=== PATIENT | female | born 1955 | race Caucasian/White ===

== ENCOUNTER → 2018-09-11 14:11 | Outpatient (CLI) | payer OTHER, MEDICAID | END | disposition home or self-care (01) | LOC: D.CT 14:11 | DX: Z12.2 Encounter for screening for malignant neoplasm of respiratory organs (principal) ==

== ENCOUNTER 2019-02-24 14:52 | Emergency (ER) | payer OTHER, MEDICAID ==
[~2019-02-24] VITALS: Ht 152.4 cm; Wt 44.5 kg
[2019-02-24 15:02] VITALS: Ht 152.4 cm; Wt 44.5 kg
[2019-02-24] MEDS ORDERED: HYDROCODON-ACE1 EA10 PO (15:03)
[2019-02-24] MEDS ORDERED: VOLTAREN75 MG PO (15:46)
[2019-02-24] MEDS ORDERED: PREDNISONE20 MG PO (15:46)
[2019-02-24 16:31] VITALS: BP 111/74
[2019-02-25] MEDS ORDERED: CLIMARA 0.0.1 MG/PAT TRANSDERM (08:44)
[2019-02-25] MEDS ORDERED: ZANAFLEX2 M1 PO (08:46)
[2019-02-25] MEDS ORDERED: DURAGESIC1 PATCH .1 TRANSDERM (13:49)
[2019-02-26 12:23] VITALS: Ht 152.4 cm; Wt 44.5 kg
== END 2019-02-24 16:31 | disposition home or self-care (01) ==
LOC: D.ER 14:52
DX: M54.31 Sciatica, right side (principal)

== ENCOUNTER 2019-02-25 03:29 | Emergency (ER) | payer OTHER, MEDICAID ==
[~2019-02-25] VITALS: Ht 152.4 cm; Wt 44.5 kg
[~2019-02-25 03:29] MED LIST: HYDROCODON-ACE1 EA10 PO; PREDNISONE20 MG PO; VOLTAREN75 MG PO
[2019-02-25 03:34] VITALS: Ht 152.4 cm; Wt 44.5 kg
[2019-02-25 04:13] VITALS: BP 100/54
[2019-02-25] MEDS ORDERED: CLIMARA 0.0.1 MG/PAT TRANSDERM (08:44)
[2019-02-25] MEDS ORDERED: ZANAFLEX2 M1 PO (08:46)
[2019-02-25] MEDS ORDERED: DURAGESIC1 PATCH .1 TRANSDERM (13:49)
[2019-02-26 12:23] VITALS: Ht 152.4 cm; Wt 44.5 kg
== END 2019-02-25 04:14 | disposition home or self-care (01) ==
LOC: D.ER 03:29
DX: M54.16 Radiculopathy, lumbar region (principal)

== ENCOUNTER 2019-02-25 04:46 | Inpatient (IN) | payer OTHER, MEDICAID ==
[2019-02-25] VITALS (19 sets, daily range): BP systolic 107–159; BP diastolic 60–103; BMI 17.0
[~2019-02-25] VITALS: Ht 152.4 cm; Wt 41.4 kg
[2019-02-25 05:22] LABS: APPEARANCE CLEAR (CLEAR); BILIRUBIN NEGATIVE (NEGATIVE); COLOR YELLOW (YELLOW); GLUCOSE NEGATIVE (NEGATIVE); KETONE SMALL mg/dL (NEGATIVE); NITRITE NEGATIVE (NEGATIVE); PROTEIN NEGATIVE (NEGATIVE); UROBILINOGEN NORMAL (NORMAL)
[2019-02-25 05:26] LABS: BASOPHILS 0.1 % (0-2); EOSINOPHILS 0 % (0-7); HEMATOCRIT 39.2 % (36.0-48.0); HEMOGLOBIN 13.8 g/dL (12-16); IMMATURE GRANULOCYTES 0.2 % (0-5); LYMPHOCYTES 15.5 % (15-50); MCH 31.2 pg (26.0-34.0); MCHC 35.2 g/dL (31.0-37.0); MCV 88.5 fL (80.0-100.0); MONOCYTES 2.8 % (2-11); NEUTROPHILS 81.4 % (40-80); PLATELET COUNT 371 10x3/uL (130-400); RBC 4.43 10x6/uL (4.00-5.40); WBC 11.2 10x3/uL (4.8-10.8)
[2019-02-25 05:31] LABS: UDS - AMPHET NEGATIVE QUAL (NEGATIVE); UDS - BARB NEGATIVE QUAL (NEGATIVE); UDS - BENZO NEGATIVE QUAL (NEGATIVE); UDS - COCAINE NEGATIVE QUAL (NEGATIVE); UDS - OPIATE POSITIVE QUAL (NEGATIVE); UDS - PCP NEGATIVE QUAL (NEGATIVE); UDS - THC POSITIVE QUAL (NEGATIVE)
[2019-02-25 05:42] LABS: ALKALINE PHOSPHATASE 55 U/L (46-116); ALT (SGPT) 16 U/L (10-68); BILIRUBIN - TOTAL 0.49 mg/dL (0.2-1.3); CALC OSMOLALITY 276 mosm/kg (275-300); CARBON DIOXIDE 19.3 mmol/L (21.0-32.0); CHLORIDE - SERUM 99 mmol/L (98-107); CREATININE - SERUM 1.3 mg/dL (0.6-1.3); GLUCOSE 187 mg/dL (74-106); POTASSIUM - SERUM 3.9 mmol/L (3.5-5.1); PROTEIN - SERUM 8.1 g/dL (6.4-8.2); SODIUM 135 mmol/L (136-145); UREA NITROGEN 18 mg/dL (7-18); eGFR NON AFRICAN AMERICAN 44 mL/min (90-120)
[2019-02-25 06:05] LABS: CREATINE KINASE 381 UL (21-215); LIPASE 74 U/L (73-393); MAGNESIUM - SERUM 1.9 mg/dL (1.8-2.4); PRO BNP 112 pg/mL (0-125); THYROID STIMULATING HORMONE 0.52 uIU/mL (0.36-3.74); TROPONIN-I < 0.017 ng/mL (0.000-0.060)
[2019-02-25 06:07] LABS: CKMB 5.9 U/L (0.0-3.6)
--- NOTE | 2019-02-25 07:19 | NUR ---
RECIEVED CARE OF PT. PT ALET, ANSWERING QUESTIONS APPROP. CONSTANTLY WALKING, DANCING IN PLACE. CONTINUES 2ND LITER NS INFUSING. VSS
--- NOTE | 2019-02-25 07:20 | NUR ---
ENTERED PT ROOM AND PT HAD MED BOTTLE IN HAND, ALSO NOTICED BOTTLE IN PURSE. RX'S FOR DILAUDID 8MG, TIZANIDINE 2MG. MEDS SECURED, INVENTORIED AND PHARMACY NOTIFIED
--- NOTE | 2019-02-25 07:29 | NUR ---
HR 128 AND REGULAR
--- NOTE | 2019-02-25 08:15 | NUR ---
PT ARRIVED TO UNIT AT THIS TIME VIA WHEELCHAIR. PT NOTED BOUNCING LEGS WITH RESTLESSNESS, UNABLE TO RELAX LEGS FOR LONGER THAN A FEW SECONDS. PT NOTED STRETCHING IN BED BY PLACING LEGS AT HEAD LEVEL TO HELP EASE RESTLESSNESS. PT IS ALERT AND ORIENTED. SITTER AT [facility]. WILL CONTINUE TO OBSERVE.
[2019-02-25] MEDS ORDERED: CLIMARA 0.0.1 MG/PAT TRANSDERM (08:44)
[2019-02-25] MEDS ORDERED: ZANAFLEX2 M1 PO (08:46)
--- NOTE | 2019-02-25 10:25 | NUR ---
PT LYING IN BED WITH EYES CLOSED AT THIS TIME. PT IS CALM, STATES THAT HER DISCOMFORT/TWITCHING TO LEGS HAS BEGAN TO DIMINISHED. PT APPEARS MUCH LESS RESTLESS AND HEART RATE NOW NOTED IN SINUS 60S. DR WOODWARD ROUNDING ON PT, NOTIFIED. NO ACUTE DISTRESS NOTED. VSS. WILL CONTINUE PLAN OF CARE.
--- NOTE | 2019-02-25 11:07 | NUR ---
DR WOODWARD HAS SEEN PT, ORDERS RECIEVED FOR CT HEAD WITHOUT CONTRAST. ORDER PLACED. NO ACUTE DISTRESS NOTED. VSS. WILL CONTINUE PLAN OF CARE.
--- NOTE | 2019-02-25 11:18 | NUR ---
CONTINENT VOID AT THIS TIME VIA BEDSIDE TOILET, 300ML YELLOW URINE. NO ACUTE DISTRESS NOTED. VSS. WILL CONTINUE PLAN OF CARE.
[2019-02-25 12:13] LABS: CKMB 17.5 U/L (0.0-3.6); TROPONIN-I 0.027 ng/mL (0.000-0.060)
[2019-02-25 12:14] LABS: CREATINE KINASE 1002 UL (21-215)
--- NOTE | 2019-02-25 12:14 | NUR ---
PT NOTED TO APPEAR RESTLESS AT THIS TIME, UNABLE TO STAY STILL FOR LONGER THAN A FEW SECONDS. NOTED TO HAVE JERKING MOTIONS TO BOTH LEGS. PT UP IN ROOM WALKING AROUND TRYING TO HELP CALM THE MOVEMENTS DOWN. SITTER AT BEDSIDE. WILL CONTINUE TO OBSERVE.
--- NOTE | 2019-02-25 12:59 | NUR ---
PT INCREASE IN RESTLESSNESS/AGGITATION AND UNABLE TO REMAIN STILL AT ALL. PT CRAWLING IN BED AND WALKING IN ROOM. HEART RATE INCREAED TO 102 SINUS TACH. PRN ATIVAN ADMIN. DR WOODWARD UPDATED AND NOTIFIED ORDERED PRN HALDOL AND LAB TEST OF TSH. ORDERS PLACED. SITTED AT BEDSIDE. WILL CONTINUE PLAN OF CARE.
--- NOTE | 2019-02-25 13:22 | NUR ---
PT UP IN ROOM AT THIS TIME. NO ACUTE DISTRESS NOTED. PT STILL NOTED RESTLESS, HEART RATE TRENDING AROUND 97-102 SINUS. PT TALKING WITH SITTER. WILL CONTINUE TO OBSERVE.
[2019-02-25] MEDS ORDERED: DURAGESIC1 PATCH .1 TRANSDERM (13:49)
--- NOTE | 2019-02-25 14:20 | NUR ---
PT STILL STANDING UP IN ROOM BUT APPEARS LESS AGGITATED WITH CURRENTLY FEWER TWITCHING MOVEMENTS. HEART RATE 72 SINUS. VSS. WILL CONTINUE TO OBSERVE.
--- NOTE | 2019-02-25 16:32 | NUR ---
LYING IN BED, BACKWARDS IN BED WITH HEAD AT FOOT OF BED. PT IS AWAKE, CALM. DENIES ANY NEEDS. STATES STILL HAVING SOME TWITCHING OF LEGS. VSS. WILL CONTINUE PLAN OF CARE.
[2019-02-25 17:32] LABS: CREATINE KINASE 1164 UL (21-215); TROPONIN-I < 0.017 ng/mL (0.000-0.060)
--- NOTE | 2019-02-25 17:59 | NUR ---
PT PACING FLOOR. WANTS IV TAKEN OFF, SAYS SHE "NEEDS A BREAK" FROM IT. LET HER KNOW THAT SHE HAD ORDERS FOR IT TO BE INFUSING AND CANNOT TURN IT OFF. SITTER IS AT BEDSIDE.
--- NOTE | 2019-02-25 18:00 | NUR ---
PER BROOKE WHITING TO GUY SITTER. PT WILL BE MOVED TO ROOM CLOSER TO NURSES STATION FOR CLOSE OBSERVATIONS. NO CURRENT AGGITATION. VSS. WILL CONTINUE PLAN OF CARE.
--- NOTE | 2019-02-25 21:52 | NUR ---
1900 PT ASSESSMENT COMPLETED AT THIS TIME, PT STILL ANXIOUS AND C/O LEGS SPASMING, PT STATES THAT IT IS SOME BETTER AFTER THE MEDICINE THEY GAVE HER. VSS WILL CONT TO MONITOR
--- NOTE | 2019-02-25 21:54 | NUR ---
2100 PT UP TO THE BEDSIDE C/O LEGS GETTING WORSE. PT WAS GIVEN PRN MEDICINE TO CALM HER RESTLESS/AGGITATION, AND RELAX HER SPASMS
[2019-02-25 23:36] LABS: CKMB 17.3 U/L (0.0-3.6)
[2019-02-25 23:40] LABS: CREATINE KINASE 1374 UL (21-215); TROPONIN-I < 0.017 ng/mL (0.000-0.060)
[2019-02-26] VITALS (12 sets, daily range): BP systolic 109–153; BP diastolic 57–90; Ht 152.4 cm; Wt 41.4 kg
--- NOTE | 2019-02-26 00:10 | NUR ---
0915 PT CALLED NURSE TO ROOM, PT WAS NOTED STANDING AT THIS IV PUMP TRYING TO TAKE HER IV OUT. SWELLING AT THE SITE WAS NOTED, IV D/C WITH CATH INTACT. DRESSING PLACED TO SITE BLEEDING CONTROLLED AT THIS TIME.
--- NOTE | 2019-02-26 00:40 | NUR ---
0025 PT WAS FOUND UP AT THE BEDSIDE WITH HER MANUGRAPHER AND CIGARETES IN HAND, PT WAS INFORMED THAT SHE COULD NOT SMOKE AND HER BELONGINGS WERE REMOVED FROM HER ROOM. 0030 PT WAS AGAIN INSTRUCTED TO STAY IN THE BED DUE HER INCREASING CMBK,CPK 0035 PT OUT OF BED STATES THAT SHE IS TRYING TO UNTANGLE THE CORDS. PT WAS PLACED BACK IN BED. 0040. PT OUT OF BED AGAIN, PT STATES THAT SHE WAS TRYING TO FIX THE STUFF THE KIDS MESSED UP. PT WAS INFORMED THAT SHE WAS IN THE HOSPITAL AND THERE WAS NO KIDS HERE, PT HELPED BACK TO BED.
--- NOTE | 2019-02-26 01:06 | NUR ---
0050 PT WAS GETTING OUT OF BED, WHEN ASKED WHAT SHE WAS DOING THE PT RESPONDED IM READY TO BE DISCHARGED. PT WAS UNABLE TO REPEAT WHAT HOSPITAL SHE WAS AT, THE TIME OF DAY, OR THE REASON SHE WAS IN THE HOSPITAL. PT WAS INFORMED THAT SHE WAS NOT ORIENTED ENOUGH TO BE DISCHARGED AT THIS TIME. PT WAS ASSISTED BACK TO BED.
--- NOTE | 2019-02-26 02:12 | NUR ---
PT CONFUSED AND ON HER KNEES IN THE BED TRYING TO TURN OFF THE CALL LIGHT. PT IS MORE CONFUSED. VSS AT THIS TIME.
--- NOTE | 2019-02-26 03:30 | NUR ---
INTO PATIENTS ROOM MULTIPLE TIMES THIS AM WITH PATIENT GETTING UP OUT OF BED. PAITENT CONFUSED. DISORIENTED TO PLACE/TIME AND SITUATION. HAVING VISUAL AND AUDITORY HALLUCINATIONS OF FAMILY MEMBERS. REORIENTED WITH LITTLE TO NO RETENTION. ASSISTED TO BED WITH BED ALARM ON AND FUNCTIONING PROPERLY
[2019-02-26 03:49] LABS: BASOPHILS 0.2 % (0-2); EOSINOPHILS 0.1 % (0-7); HEMATOCRIT 35.8 % (36.0-48.0); HEMOGLOBIN 12.5 g/dL (12-16); IMMATURE GRANULOCYTES 0.2 % (0-5); LYMPHOCYTES 13.7 % (15-50); MCH 30.8 pg (26.0-34.0); MCHC 34.9 g/dL (31.0-37.0); MCV 88.2 fL (80.0-100.0); MEAN PLATELET VOLUME 10.1 fL (7.4-10.4); MONOCYTES 7.1 % (2-11); NEUTROPHILS 78.7 % (40-80); PLATELET COUNT 335 10x3/uL (130-400); RBC 4.06 10x6/uL (4.00-5.40); RDW 14.1 % (11.5-14.5)
[2019-02-26 03:51] LABS: WBC 15.2 10x3/uL (4.8-10.8)
--- NOTE | 2019-02-26 03:53 | NUR ---
CALLED NURSE CLINICAL ALICIA GUDINO DUE TO CHANGES IN MENTAL STATUS AND INCREASED CONFUSION WITH HALLUCINATIONS, SHE ORDERED TO NOT GIVEN ANY ADDITIONAL MEDICINE AT THIS TIME TO SEE IF THE MENTAL STAUS IMPROVES
[2019-02-26 04:02] LABS: ALBUMIN 3.7 g/dL (3.4-5.0); ALKALINE PHOSPHATASE 45 U/L (46-116); BILIRUBIN - TOTAL 0.48 mg/dL (0.2-1.3); C-REACTIVE PROTEIN 0.7 mg/dL (0.0-0.9); CHLORIDE - SERUM 109 mmol/L (98-107); MAGNESIUM - SERUM 1.6 mg/dL (1.8-2.4); SODIUM 145 mmol/L (136-145)
[2019-02-26 04:03] LABS: ALT (SGPT) 28 U/L (10-68); CALC OSMOLALITY 290 mosm/kg (275-300); CARBON DIOXIDE 25.9 mmol/L (21.0-32.0); CREATININE - SERUM 0.7 mg/dL (0.6-1.3); GLUCOSE 130 mg/dL (74-106); POTASSIUM - SERUM 3.1 mmol/L (3.5-5.1); UREA NITROGEN 13 mg/dL (7-18); eGFR NON AFRICAN AMERICAN 90 mL/min (90-120)
[2019-02-26 04:24] LABS: CKMB 21.6 U/L (0.0-3.6)
[2019-02-26 04:25] LABS: CREATINE KINASE 1741 UL (21-215); TROPONIN-I < 0.017 ng/mL (0.000-0.060)
--- NOTE | 2019-02-26 05:00 | NUR ---
PATIENT CONTINUES CONFUSED WITH AUDITORY AND VISUAL HALLUCINATIONS PRESENT. SPEAKING TO MULTIPLE FAMILY MEMBERS NOT PRESENT. ORIENTED TO PERSON ONLY. SPEECH CLEAR. REORIENTATION WITH LITTLE RETENTION. CONINUES GETTING UP OUT OF BED FREQUENTLY. BED ALARM ON AND FUNCTIONING PROPERLY.
[2019-02-26 05:34] LABS: ERYTHROCYTE SEDIMENTATION RATE 38 mm/hr (0-30)
--- NOTE | 2019-02-26 07:00 | NUR ---
PT RESTING IN BED C CALL CEDILLO IN REACH. PATIENT IS RESTLESS AND DISORIENTED TO PLACE AND TIME. CONTINUALLY TRYING TO GET OUT OF BED. BED ALARM ON. NS INFUSING AT 100ML/HR PER RIGHT FOREARM PIV. NO NEUROLOGICAL DEFICITS. WILL CONTINUE TO MONITOR.
--- NOTE | 2019-02-26 09:00 | NUR ---
PT REMOVD LEFT FOREARM IV. STARTED NEW ONE IN LEFT WRIST.
--- NOTE | 2019-02-26 09:38 | NUR ---
PT HAD INCONTINENT LOOSE BM IN BSC THEN THREW HER PANTS IN IT. PATIENT STATED HER PANTS COULD BE THROWN AWAY
--- NOTE | 2019-02-26 10:09 | NUR ---
patient refusing iv fluids
--- NOTE | 2019-02-26 10:30 | NUR ---
OBTAINED ORDER FROM DR. THORNTON FOR GEODON TO SEDATE PATIENT
--- NOTE | 2019-02-26 14:37 | NUR ---
BED BATH GIVEN. REPORT GIVEN TO CORINNA BROWN.
--- NOTE | 2019-02-26 15:00 | NUR ---
REASSESSMETN COMPLETE PER FLWO SHEET. VSS. NO NEW CHANGES WILL CONTINUE TO MONITOR
--- NOTE | 2019-02-26 17:00 | NUR ---
PGT RESTING COMFORTABLY VSS NO NEW CHANGES WILL CONTINUE TO MONITOR
--- NOTE | 2019-02-26 19:00 | NUR ---
1900 PT ASSESSMENT COMPLETED AT THIS TIME. PT AWAKES TO NAME. PT PULLING AT BALANKETS AND RESTRAINTS RESP EVEN NON LABORED. WILL CONT TO MONITOR FOR CHANGES. 2100 PT VSS, NO CHANGES NOTED WILL CONT TO MONITOR 2300 PT REASSESSMENT COMPLETED AT THIS TIME. NO CHANGES NOTED
[2019-02-27] VITALS (7 sets, daily range): BP systolic 99–159; BP diastolic 52–95
--- NOTE | 2019-02-27 00:25 | NUR ---
2325 PT WAKING UP AND ASKING TO USE THE BSC, PT STATES THAT HER LEGS ARE STARTING TO JERK AGAIN. PT ASSISTED TO BSC WITH STAND BY ASSIST, THEN PT ASSISTED BACK TO BED. 2330 PT CALLED SAYING HER LEGS ARE WORSE NOW. ALICIA KNIGHT NOTIFIED AND NEW ORDERS NOTED.
--- NOTE | 2019-02-27 01:15 | NUR ---
0108 PT GETTING OUT OF THE BED, PT WAS DIRECTED TO GO BACK TO BED AND USE HER CALL LIGHT. PT UNABLE TO BE STILL IN THE BED
--- NOTE | 2019-02-27 02:27 | NUR ---
ALICIA KNIGHT CALLED AND NEW ORDER GIVEN FOR PAIN MEDICINE.
--- NOTE | 2019-02-27 03:14 | NUR ---
PT MORE CALM AT THIS TIME. PT IS STILL RESTLESS AND PULLING LEGS UP
[2019-02-27 03:47] LABS: BASOPHILS 0.2 % (0-2); EOSINOPHILS 0.2 % (0-7); HEMATOCRIT 37.4 % (36.0-48.0); HEMOGLOBIN 13.3 g/dL (12-16); IMMATURE GRANULOCYTES 0.2 % (0-5); LYMPHOCYTES 17.4 % (15-50); MCHC 35.6 g/dL (31.0-37.0); MCV 87.2 fL (80.0-100.0); MEAN PLATELET VOLUME 9.9 fL (7.4-10.4); MONOCYTES 9.3 % (2-11); NEUTROPHILS 72.7 % (40-80); PLATELET COUNT 345 10x3/uL (130-400); RBC 4.29 10x6/uL (4.00-5.40); RDW 14.1 % (11.5-14.5)
[2019-02-27 04:17] LABS: ALBUMIN 3.6 g/dL (3.4-5.0); ALKALINE PHOSPHATASE 50 U/L (46-116); ALT (SGPT) 28 U/L (10-68); BILIRUBIN - TOTAL 0.36 mg/dL (0.2-1.3); CALC OSMOLALITY 283 mosm/kg (275-300); CALCIUM 8.5 mg/dL (8.5-10.1); CARBON DIOXIDE 27.6 mmol/L (21.0-32.0); CHLORIDE - SERUM 108 mmol/L (98-107); CREATININE - SERUM 0.6 mg/dL (0.6-1.3); GLUCOSE 107 mg/dL (74-106); PROTEIN - SERUM 6.9 g/dL (6.4-8.2); SODIUM 143 mmol/L (136-145); UREA NITROGEN 11 mg/dL (7-18); eGFR NON AFRICAN AMERICAN > 90 mL/min (90-120)
[2019-02-27 04:28] LABS: POTASSIUM - SERUM 2.8 mmol/L (3.5-5.1)
--- NOTE | 2019-02-27 07:30 | NUR ---
REPORT RECEIEVED. ASSESSMENT COMPLETE PER FLOW SHEET. VSS. PT RESTING COMFORTABLY. DENIES NEEDS WILL CONTINUE TO MONITOR
--- NOTE | 2019-02-27 11:20 | NUR ---
DR THORNTON AT BEDSIDE UPDATE GIVEN NEW ORDERS RECEIVED
--- NOTE | 2019-02-27 12:50 | NUR ---
PT DISCHARGED HOME AT THIS TIME WITHOUT DIFFICULTY. PT OWN MEDICATIONS RECEIVED FROM PHARMACY AND GIVEN TO PT, PT SIGNED YELLOW SLIP AND PLACED IN CHART. NEEDS MET.
[2019-02-27 14:09] LABS: ANA REFLEX - ANTICHROMATIN ABS <0.2 AI (0.0-0.9); ANA REFLEX - CENTROMERE B ABS <0.2 AI (0.0-0.9); ANA REFLEX - DBL STRANDED DNA <1 IU/mL (0-9); ANA REFLEX - DIRECT Positive (Negative); ANA REFLEX - JO-1 AB 0.3 AI (0.0-0.9); ANA REFLEX - RNP ANTIBODIES 5.5 AI (0.0-0.9); ANA REFLEX - SCL-70 <0.2 AI (0.0-0.9); ANA REFLEX - SJOGRENS AB SSA <0.2 AI (0.0-0.9); ANA REFLEX - SJOGRENS AB SSB <0.2 AI (0.0-0.9); ANA REFLEX - SMITH AB <0.2 AI (0.0-0.9)
--- NOTE | 2019-02-27 17:17 | MORECARE ---
CASE MANAGEMENT DISCHARGE SUMMARY PATIENT: TRES CUELLO UNIT: [id number] ADM DATE: 02/25/19 AGE: 63 : 57 SEX: F ROOM/BED: D.2303 AUTHOR: SAKSHI,DOC PHYSICIAN: REFERRING PHYSICIAN: MACK WOODWARD DO DATE OF SERVICE: 02/27/19 Discharge Plan Patient Name: TRES CUELLO Facility: [facility]:[place] : 1955 Planned Disposition: Home Anticipated Discharge Date: Discharge Date: 02/27/2019 Expected LOS: Initial Reviewer: [email or web address] Initial Review Date: 02/27/2019 Generated: 02/27/19 6:16 pm Comments DCP- Discharge Planning Updated by [email or web address]: Shikha Laurent on 02/27/19 4:[address] Patient Name: TRES CUELLO Admission Status: ER Accout number: [id number] Admission Date: 02-25-2019 : 1955 Admission Diagnosis:METABOLIC ENCEPHALOPATHY Attending: MACK WOODWARD Current LOS: 2 Anticipated DC Date: Planned Disposition: Home Primary Insurance: [id number] Discharge Planning Comments: CM met with patient at bedside after explaining CM role and obtaining verbal consent. Patient lives at home alone and plans to return there upon discharge. Patient feels this would be a safe discharge. CM discussed availability / needs of home health and medical equipment. Patient denies any discharge needs at this time. Patient states she will have her son drive her home upon discharge. CM will continue to follow and assist as needed with discharge planning / needs. Superannuation Clerk: Shikha Laurent DCP- Discharge Planning Updated by [id number]: Shikha Laurent on 02/26/19 4:[address] CM attempted to see patient regarding discharge planning needs. Patient is currently very confused and unable to answer any CM questions. No family available at this time. CM attempted to call contact listed but didn't get an answer. CM will continue to follow and assist as needed with discharge planning / needs. DCPIA - Discharge Planning Initial Assessment Updated by [id number]: Shikha Laurent on 02/27/19 5:09 pm * Is the patient Alert and Oriented? Yes * How many steps to enter\exit or inside your home? * PCP SHANIA * Pharmacy [facility] * Preadmission Environment Home Alone * ADLs Independent * Equipment None * List name and contact numbers for known caregivers / representatives who currently or will assist patient after discharge: HARVEY CUELLO - SON- [phone] * Verbal permission to speak to the caregivers and representatives has been obtained from the patient. Yes * Community resources currently utilized None * Additional services required to return to the preadmission environment? No * Can the patient safely return to the preadmission environment? Yes * Has this patient been hospitalized within the prior 30 days at any hospital? No Patient Name: TRES CUELLO Page [id number] at [id number] All edits/amendments must be made on the electronic document DICTATION DATE: 02/27/191715 AUTOCLAVE OPERATOR: STEVIE 02/27/191715 RPT#: [id number] DC DATE:02/27/19 STATUS: DIS IN [facility] [address] [place] [address] END OF REPORT
== END 2019-02-27 13:05 | disposition home or self-care (01) | DRG 917 ==
LOC: D.ER 04:46 → D.ICU 07:51
PROVIDERS: Family Medicine; ADMIT Family Medicine; ATTEND Family Medicine
DX: T50.901A Poisoning by unspecified drugs, medicaments and biological substances, accidental (unintentional), initial encounter (principal); G92 Toxic encephalopathy; E87.2 Acidosis; G89.29 Other chronic pain; F41.9 Anxiety disorder, unspecified; Z87.891 Personal history of nicotine dependence; R00.0 Tachycardia, unspecified

== ENCOUNTER 2019-04-14 01:55 | Emergency (ER) | payer MEDICARE, MEDICAID ==
[~2019-04-14] VITALS: Ht 152.4 cm; Wt 43.2 kg
[~2019-04-14 01:55] MED LIST changes: +CLIMARA 0.0.1 MG/PAT TRANSDERM; +DURAGESIC1 PATCH .1 TRANSDERM; +ZANAFLEX2 M1 PO
[2019-04-14 02:04] VITALS: Ht 152.4 cm; Wt 43.2 kg
[2019-04-14 02:55] VITALS: BP 139/88
== END 2019-04-14 02:57 | disposition home or self-care (01) ==
LOC: D.ER 01:55
DX: M54.32 Sciatica, left side (principal)

== ENCOUNTER 2019-05-07 19:02 | Emergency (ER) | payer MEDICARE, MEDICAID ==
[~2019-05-07] VITALS: Ht 152.4 cm; Wt 45.4 kg
[2019-05-07 19:08] VITALS: Ht 152.4 cm; Wt 45.4 kg
[2019-05-07] MEDS ORDERED: TORADOL10 MG PO (20:08)
[2019-05-07 20:41] VITALS: BP 96/61
[2019-05-08] MEDS ORDERED: CYCLOBENZAPRINE10 MG PO (01:04)
[2019-05-08] MEDS ORDERED: ACETAMINOPHEN500 M1 PO (01:04)
[2019-05-08] MEDS ORDERED: BACLOFEN20 M1 PO (17:10)
[2019-05-08] MEDS ORDERED: VOLTAREN75 MG PO (17:10)
== END 2019-05-07 20:41 | disposition home or self-care (01) ==
LOC: D.ER 19:02
DX: M54.16 Radiculopathy, lumbar region (principal); M54.5 Low back pain

== ENCOUNTER 2019-05-08 00:08 | Emergency (ER) | payer MEDICARE, MEDICAID ==
[~2019-05-08] VITALS: Ht 152.4 cm; Wt 45.5 kg
[~2019-05-08 00:08] MED LIST changes: +TORADOL10 MG PO
[2019-05-08 00:17] VITALS: Ht 152.4 cm; Wt 45.5 kg
[2019-05-08] MEDS ORDERED: ACETAMINOPHEN500 M1 PO (01:04)
[2019-05-08] MEDS ORDERED: CYCLOBENZAPRINE10 MG PO (01:04)
[2019-05-08 01:10] VITALS: BP 105/65
[2019-05-08] MEDS ORDERED: VOLTAREN75 MG PO (17:10)
[2019-05-08] MEDS ORDERED: BACLOFEN20 M1 PO (17:10)
== END 2019-05-08 01:10 | disposition home or self-care (01) ==
LOC: D.ER 00:08
DX: M54.41 Lumbago with sciatica, right side (principal)

== ENCOUNTER 2019-05-08 15:11 | Emergency (ER) | payer MEDICARE, MEDICAID ==
[~2019-05-08] VITALS: Ht 152.4 cm; Wt 43.2 kg
[~2019-05-08 15:11] MED LIST changes: +ACETAMINOPHEN500 M1 PO; +CYCLOBENZAPRINE10 MG PO
[2019-05-08 15:29] VITALS: Ht 152.4 cm; Wt 43.2 kg
[2019-05-08] MEDS ORDERED: VOLTAREN75 MG PO (17:10)
[2019-05-08] MEDS ORDERED: BACLOFEN20 M1 PO (17:10)
[2019-05-08 18:28] VITALS: BP 129/73
== END 2019-05-08 18:29 | disposition home or self-care (01) ==
LOC: D.ER 15:11
DX: M54.5 Low back pain (principal); M62.838 Other muscle spasm

== ENCOUNTER 2019-05-09 05:22 | Emergency (ER) | payer MEDICARE, MEDICAID ==
[~2019-05-09] VITALS: Ht 152.4 cm; Wt 45.5 kg
[~2019-05-09 05:22] MED LIST changes: +BACLOFEN20 M1 PO
[2019-05-09 05:25] VITALS: Ht 152.4 cm; Wt 45.5 kg
[2019-05-09 06:32] VITALS: BP 139/68
== END 2019-05-09 06:28 | disposition home or self-care (01) ==
LOC: D.ER 05:22
DX: M54.30 Sciatica, unspecified side (principal)

== ENCOUNTER 2019-05-11 13:59 | Emergency (ER) | payer MEDICARE, MEDICAID ==
[~2019-05-11] VITALS: Ht 152.4 cm; Wt 45.5 kg
[2019-05-11 14:01] VITALS: BP 145/90; Ht 152.4 cm; Wt 45.5 kg
== END 2019-05-11 15:47 | disposition home or self-care (01) ==
LOC: D.ER 13:59
DX: M54.31 Sciatica, right side (principal)

== ENCOUNTER 2019-05-12 02:44 | Emergency (ER) | payer MEDICARE, MEDICAID ==
[~2019-05-12] VITALS: Ht 152.4 cm; Wt 45.5 kg
[2019-05-12 02:48] VITALS: Ht 152.4 cm; Wt 45.5 kg
[2019-05-12 03:01] LABS: BASOPHILS 0 % (0-2); EOSINOPHILS 0 % (0-7); HEMATOCRIT 41.1 % (36.0-48.0); HEMOGLOBIN 13.9 g/dL (12-16); IMMATURE GRANULOCYTES 0.1 % (0-5); LYMPHOCYTES 11.2 % (15-50); MCHC 33.8 g/dL (31.0-37.0); MCV 94.5 fL (80.0-100.0); MEAN PLATELET VOLUME 9.8 fL (7.4-10.4); MONOCYTES 3.1 % (2-11); NEUTROPHILS 85.6 % (40-80); PLATELET COUNT 355 10x3/uL (130-400); RBC 4.35 10x6/uL (4.00-5.40); WBC 7.7 10x3/uL (4.8-10.8)
[2019-05-12 03:08] LABS: APPEARANCE CLEAR (CLEAR); BILIRUBIN NEGATIVE (NEGATIVE); COLOR YELLOW (YELLOW); GLUCOSE 250 mg/dL (NEGATIVE); KETONE NEGATIVE (NEGATIVE); NITRITE NEGATIVE (NEGATIVE); PROTEIN NEGATIVE (NEGATIVE); SPECIFIC GRAVITY 1.015 (1.005-1.020); UROBILINOGEN NORMAL (NORMAL)
[2019-05-12 03:23] LABS: UDS - AMPHET NEGATIVE QUAL (NEGATIVE); UDS - BARB NEGATIVE QUAL (NEGATIVE); UDS - BENZO POSITIVE QUAL (NEGATIVE); UDS - COCAINE NEGATIVE QUAL (NEGATIVE); UDS - OPIATE POSITIVE QUAL (NEGATIVE); UDS - PCP NEGATIVE QUAL (NEGATIVE); UDS - THC POSITIVE QUAL (NEGATIVE)
[2019-05-12 03:24] LABS: ALBUMIN 3.8 g/dL (3.4-5.0); ALKALINE PHOSPHATASE 55 U/L (46-116); ALT (SGPT) 24 U/L (10-68); CALCIUM 8.8 mg/dL (8.5-10.1); CARBON DIOXIDE 22.3 mmol/L (21.0-32.0); CREATINE KINASE 79 UL (21-215); CREATININE - SERUM 1.1 mg/dL (0.6-1.3); GLUCOSE 290 mg/dL (74-106); MAGNESIUM - SERUM 1.8 mg/dL (1.8-2.4); PROTEIN - SERUM 7.5 g/dL (6.4-8.2); THYROID STIMULATING HORMONE 1.14 uIU/mL (0.36-3.74); TROPONIN-I < 0.017 ng/mL (0.000-0.060); UREA NITROGEN 17 mg/dL (7-18); eGFR NON AFRICAN AMERICAN 53 mL/min (90-120)
[2019-05-12 03:29] LABS: CALC OSMOLALITY 284 mosm/kg (275-300); CHLORIDE - SERUM 100 mmol/L (98-107); POTASSIUM - SERUM 3.9 mmol/L (3.5-5.1); SODIUM 136 mmol/L (136-145)
[2019-05-12 04:30] VITALS: BP 103/62
== END 2019-05-12 04:30 | disposition home or self-care (01) ==
LOC: D.ER 02:44
PROVIDERS: Family Medicine
DX: G89.29 Other chronic pain (principal); M54.30 Sciatica, unspecified side

== ENCOUNTER 2019-05-13 04:05 | Emergency (ER) | payer MEDICARE, MEDICAID ==
[~2019-05-13] VITALS: Ht 152.4 cm; Wt 45.5 kg
[2019-05-13 04:08] VITALS: Ht 152.4 cm; Wt 45.5 kg
[2019-05-14] MEDS ORDERED: TORADOL10 MG PO (05:44)
== END 2019-05-13 04:22 | disposition home or self-care (01) ==
LOC: D.ER 04:05
DX: G89.29 Other chronic pain (principal); Z13.89 Encounter for screening for other disorder; M54.30 Sciatica, unspecified side

== ENCOUNTER 2019-05-14 05:29 | Emergency (ER) | payer MEDICARE, MEDICAID ==
[~2019-05-14] VITALS: Ht 152.4 cm; Wt 45.5 kg
[2019-05-14 05:30] VITALS: Ht 152.4 cm; Wt 45.5 kg
[2019-05-14] MEDS ORDERED: TORADOL10 MG PO (05:44)
[2019-05-14 06:11] VITALS: BP 105/42
== END 2019-05-14 06:11 | disposition home or self-care (01) ==
LOC: D.ER 05:29
DX: M51.36 Other intervertebral disc degeneration, lumbar region (principal); M54.31 Sciatica, right side

== ENCOUNTER 2019-05-31 05:47 | Emergency (ER) | payer MEDICARE, MEDICAID ==
[~2019-05-31] VITALS: Ht 152.4 cm; Wt 45.5 kg
[2019-05-31 05:50] VITALS: Ht 152.4 cm; Wt 45.5 kg
[2019-05-31 07:09] LABS: UDS - AMPHET NEGATIVE QUAL (NEGATIVE); UDS - BARB NEGATIVE QUAL (NEGATIVE); UDS - BENZO NEGATIVE QUAL (NEGATIVE); UDS - COCAINE NEGATIVE QUAL (NEGATIVE); UDS - OPIATE NEGATIVE QUAL (NEGATIVE); UDS - PCP NEGATIVE QUAL (NEGATIVE); UDS - THC POSITIVE QUAL (NEGATIVE)
[2019-05-31 07:58] LABS: BASOPHILS 0.2 % (0-2); EOSINOPHILS 0.4 % (0-7); HEMATOCRIT 39.3 % (36.0-48.0); HEMOGLOBIN 13.3 g/dL (12-16); IMMATURE GRANULOCYTES 0.3 % (0-5); LYMPHOCYTES 16.5 % (15-50); MCH 31.7 pg (26.0-34.0); MCHC 33.8 g/dL (31.0-37.0); MCV 93.6 fL (80.0-100.0); MEAN PLATELET VOLUME 10.3 fL (7.4-10.4); MONOCYTES 6.8 % (2-11); NEUTROPHILS 75.8 % (40-80); PLATELET COUNT 298 10x3/uL (130-400); RDW 13.1 % (11.5-14.5); WBC 10.7 10x3/uL (4.8-10.8)
[2019-05-31 08:01] LABS: APPEARANCE CLOUDY (CLEAR); BILIRUBIN NEGATIVE (NEGATIVE); COLOR YELLOW (YELLOW); GLUCOSE NEGATIVE (NEGATIVE); KETONE SMALL mg/dL (NEGATIVE); NITRITE NEGATIVE (NEGATIVE); PROTEIN TRACE mg/dL (NEGATIVE); UROBILINOGEN NORMAL (NORMAL)
[2019-05-31 08:03] LABS: APTT 25.9 SECONDS (22.8-39.4); INR 1.04 (0.85-1.17); PROTIME 13.1 SECONDS (11.6-15.0)
[2019-05-31 08:05] LABS: CALC OSMOLALITY 292 mosm/kg (275-300); CALCIUM 8.8 mg/dL (8.5-10.1); CARBON DIOXIDE 25.4 mmol/L (21.0-32.0); CHLORIDE - SERUM 110 mmol/L (98-107); CREATININE - SERUM 0.6 mg/dL (0.6-1.3); GLUCOSE 94 mg/dL (74-106); POTASSIUM - SERUM 3.3 mmol/L (3.5-5.1); SODIUM 147 mmol/L (136-145); UREA NITROGEN 16 mg/dL (7-18); eGFR NON AFRICAN AMERICAN > 90 mL/min (90-120)
[2019-05-31 08:22] LABS: ALBUMIN 3.7 g/dL (3.4-5.0); ALKALINE PHOSPHATASE 55 U/L (46-116); ALT (SGPT) 23 U/L (10-68); BILIRUBIN - TOTAL 0.39 mg/dL (0.2-1.3); CKMB 4.7 U/L (0.0-3.6); CREATINE KINASE 269 UL (21-215); PROTEIN - SERUM 7.1 g/dL (6.4-8.2)
[2019-05-31 08:23] LABS: TROPONIN-I < 0.017 ng/mL (0.000-0.060)
[2019-05-31] MEDS ORDERED: CYCLOBENZAPRINE10 MG PO (08:25)
[2019-05-31] MEDS ORDERED: IBUPROFEN800 MG PO (08:25)
[2019-05-31] MEDS ORDERED: ACETAMINOPHEN500 M1 PO (08:25)
[2019-05-31 10:01] VITALS: BP 030/77
== END 2019-05-31 10:01 | disposition home or self-care (01) ==
LOC: D.ER 05:47
PROVIDERS: Emergency Medicine; Family Medicine
DX: S00.83XA Contusion of other part of head, initial encounter (principal); W19.XXXA Unspecified fall, initial encounter; Y93.9 Activity, unspecified; Y92.9 Unspecified place or not applicable; G89.29 Other chronic pain; M54.31 Sciatica, right side; I10 Essential (primary) hypertension; Z72.0 Tobacco use

== ENCOUNTER 2019-07-02 18:58 | Emergency (ER) | payer MEDICARE, MEDICAID ==
[~2019-07-02] VITALS: Ht 152.4 cm; Wt 45.5 kg
[~2019-07-02 18:58] MED LIST changes: +IBUPROFEN800 MG PO
[2019-07-02 19:23] VITALS: Ht 152.4 cm; Wt 45.5 kg
[2019-07-02] MEDS ORDERED: MOBIC7.5 MG PO (19:24)
[2019-07-02 20:11] LABS: BASOPHILS 0.3 % (0-2); EOSINOPHILS 0.4 % (0-7); HEMOGLOBIN 13.6 g/dL (12-16); IMMATURE GRANULOCYTES 0.1 % (0-5); LYMPHOCYTES 23.2 % (15-50); MCH 31.6 pg (26.0-34.0); MEAN PLATELET VOLUME 9.7 fL (7.4-10.4); MONOCYTES 8.8 % (2-11); NEUTROPHILS 67.2 % (40-80); PLATELET COUNT 349 10x3/uL (130-400); RDW 13.3 % (11.5-14.5); WBC 14.2 10x3/uL (4.8-10.8)
[2019-07-02 20:45] LABS: CALC OSMOLALITY 280 mosm/kg (275-300); CALCIUM 8.8 mg/dL (8.5-10.1); CARBON DIOXIDE 28.4 mmol/L (21.0-32.0); CHLORIDE - SERUM 104 mmol/L (98-107); CREATININE - SERUM 0.6 mg/dL (0.6-1.3); GLUCOSE 97 mg/dL (74-106); POTASSIUM - SERUM 3.8 mmol/L (3.5-5.1); SODIUM 141 mmol/L (136-145); UREA NITROGEN 13 mg/dL (7-18); eGFR NON AFRICAN AMERICAN > 90 mL/min (90-120)
[2019-07-02 20:52] LABS: ALBUMIN 3.4 g/dL (3.4-5.0); ALKALINE PHOSPHATASE 76 U/L (46-116); ALT (SGPT) 17 U/L (10-68); BILIRUBIN - TOTAL 0.12 mg/dL (0.2-1.3); PROTEIN - SERUM 7.6 g/dL (6.4-8.2)
[2019-07-02] MEDS ORDERED: MUCINEX600 MG PO (22:29)
[2019-07-02] MEDS ORDERED: ALBUTEROL SULF8.5 GM INH (22:33)
[2019-07-02 23:25] VITALS: BP 104/61
== END 2019-07-02 23:25 | disposition home or self-care (01) ==
LOC: D.ER 18:58
PROVIDERS: Family Medicine
DX: R05 Cough (principal); M54.30 Sciatica, unspecified side

== ENCOUNTER 2019-07-06 16:16 | Emergency (ER) | payer MEDICARE, MEDICAID ==
[~2019-07-06] VITALS: Ht 152.4 cm; Wt 43.2 kg
[~2019-07-06 16:16] MED LIST changes: +ALBUTEROL SULF8.5 GM INH; +MOBIC7.5 MG PO; +MUCINEX600 MG PO
[2019-07-06 17:16] VITALS: Ht 152.4 cm; Wt 43.2 kg
[2019-07-06 17:54] VITALS: BP 105/67
[2019-07-06] MEDS ORDERED: TESSALON PERLE100 MG PO (19:11)
[2019-07-06] MEDS ORDERED: FLUTICASONE PRO16 GM NASAL (19:11)
[2019-07-06] MEDS ORDERED: ZPAK PO (19:11)
== END 2019-07-06 19:21 | disposition home or self-care (01) ==
LOC: D.ER 16:16
DX: J40 Bronchitis, not specified as acute or chronic (principal); J32.9 Chronic sinusitis, unspecified; M54.30 Sciatica, unspecified side

== ENCOUNTER → 2019-10-11 16:52 | Outpatient (CLI) | payer MEDICARE, MEDICAID ==
[2019-07-06 17:16] VITALS: BMI 18.5
[~2019-10-11 16:52] MED LIST changes: +FLUTICASONE PRO16 GM NASAL; +TESSALON PERLE100 MG PO; +ZPAK PO
== END | disposition home or self-care (01) ==
LOC: D.CT 16:30
PROVIDERS: ATTEND Family Medicine
DX: R10.31 Right lower quadrant pain (principal)